=== PATIENT | male | born 1970 | race Hispanic/Latino ===

== ENCOUNTER 2018-07-11 02:50 | Emergency (ER) | payer BC ==
[~2018-07-11] VITALS: Ht 172.7 cm; Wt 136.1 kg
[2018-07-11] MEDS ORDERED: FAMOTIDINE 20 MG/2 ML VIAL IV STA (03:46)
[2018-07-11] MEDS ORDERED: DIPHENHYDRAMINE HCL INJ 50 MG/ML VIAL IV ONE (04:00)
[2018-07-11] MEDS ORDERED: PREDNISONE20 MG PO (05:10)
[2018-07-11 05:13] VITALS: BP 112/58
== END 2018-07-11 05:32 | disposition home or self-care (01) ==
LOC: ER 02:50
DX: J02.9 Acute pharyngitis, unspecified (principal)
CPT/HCPCS: 96374; 99283; J1200